=== PATIENT | male | born 1965 | race Caucasian/White ===

== ENCOUNTER 2017-08-04 21:51 | Emergency (ER) | payer OTHER ==
[~2017-08-04] VITALS: Ht 175.3 cm; Wt 74.8 kg
[~2017-08-04 21:51] MED LIST: ALEVE220 MG PO; AMOXICILLIN 50500 M1 PO; AUGMENTIN 875875 MG PO; CIPROFLOXACIN500 M1 PO; CLEOCIN HCL300 MG PO; CLONAZEPAM 1 MG1 M1 PO; COLACE100 MG PO; FLAGYL500 MG PO; HYDROCODON-ACE1 EAC7 PO; HYDROCODON-ACE1 EACH PO; HYDROCODONE-APA1 TA1 PO; IBUPROFEN 800800 MG PO; METOPROLOL SUC100 MG PO; METOPROLOL SUCC25 M1; MIRALAX255 GM PO; NAPROSYN500 MG PO; NOHOMEMEDICATIONS; NORCO 5-325 TA1 EACH PO; PERCOCET 5-3251 EACH PO; ULTRAM 50MG TAB50 MG PO; VICODIN HP 10-1 EAC1 PO; ZOFRAN4 MG PO
[2017-08-04 22:23] LABS: ABSOLUTE BASOPHILS 0.1 thou/uL (0.0-0.2); ABSOLUTE EOSINOPHILS 0.2 thou/uL (0.0-0.7); ABSOLUTE MONOCYTES 0.5 thou/uL (0.0-1.2); ABSOLUTE NEUTROPHILS 4.3 thou/uL (1.6-8.1); HEMATOCRIT 40.8 % (42.0-52.0); HEMOGLOBIN 13.6 gm/dL (14.0-18.0); MCH 30.4 pg (26.0-34.0); MCHC 33.4 g/dL (28.0-37.0); MCV 90.9 fL (80.0-100.0); MONOCYTES 6.7 %; MPV 7.7 fl. (7.2-11.1); NUCLEATED RBCS 0 /100WBC; PLATELET COUNT* 334 thou/uL (150-400); POLYS 52.3 %; RBC 4.49 mil/uL (4.50-6.00); WBC 8.1 thou/uL (4.0-11.0)
[2017-08-04 22:38] LABS: ALBUMIN 3.7 g/dL (3.4-5.0); CALCIUM 8.1 mg/dL (8.5-10.1); CREATININE 0.9 mg/dL (0.6-1.3); POTASSIUM 3.6 mmol/L (3.5-5.1); TOTAL BILIRUBIN 0.2 mg/dL (<0.1-1.0); TOTAL PROTEIN 6.8 g/dL (6.4-8.2)
[2017-08-04 22:45] LABS: URINE BILIRUBIN NEGATIVE (Negative); URINE BLOOD NEGATIVE (Negative); URINE CLARITY CLEAR; URINE COLOR STRAW; URINE GLUCOSE-RANDOM NEGATIVE (Negative); URINE KETONES NEGATIVE (Negative); URINE LEUKOCYTES-REFLEX NEGATIVE (Negative); URINE NITRITE-REFLEX NEGATIVE (Negative); URINE PROTEIN NEGATIVE (Negative); URINE SPECIFIC GRAVITY <= 1.005 (1.005-1.030); URINE UROBILINOGEN 0.2 E.U./dl (0.2-1.0)
[2017-08-04 22:53] LABS: AMP/METHAMP Negative (Negative); BARBITURATES Negative (Negative); BENZODIAZEPINES Negative (Negative); COCAINE Negative (Negative); METHADONE Negative (Negative); OPIATES Negative (Negative); PCP Negative (Negative); THC Negative (Negative)
[2017-08-05] MEDS ORDERED: ULTRAM 50MG TAB50 MG PO (01:27)
[2017-08-05] MEDS ORDERED: TORADOL 10 MG T10 MG PO (01:27)
[2017-08-05 01:37] VITALS: BP 123/80
[2018-05-04] MEDS ORDERED: NEURONTIN 400400 M1 PO (12:40)
[2018-05-04] MEDS ORDERED: CARAFATE 1 GM TA1 G1 PO (12:40)
[2018-05-04] MEDS ORDERED: ZOFRAN ODT4 MG DISSOLVE (12:40)
[2018-05-05] MEDS ORDERED: ATIVAN2 MG PO (01:00)
== END 2017-08-05 01:37 | disposition home or self-care (01) ==
LOC: M.ERS 21:51
PROVIDERS: Personal Emergency Response Attendant
DX: F10.920 Alcohol use, unspecified with intoxication, uncomplicated (principal); R51 Headache; I10 Essential (primary) hypertension; F41.9 Anxiety disorder, unspecified; Z86.73 Personal history of transient ischemic attack (TIA), and cerebral infarction without residual deficits; G89.29 Other chronic pain; Z98.890 Other specified postprocedural states

== ENCOUNTER 2017-08-09 19:09 | Emergency (ER) | payer OTHER ==
[~2017-08-09] VITALS: Ht 175.3 cm; Wt 79.4 kg
[~2017-08-09 19:09] MED LIST changes: +TORADOL 10 MG T10 MG PO
[2017-08-09 19:17] VITALS: BP 155/101
[2018-05-04] MEDS ORDERED: NEURONTIN 400400 M1 PO (12:40)
[2018-05-04] MEDS ORDERED: CARAFATE 1 GM TA1 G1 PO (12:40)
[2018-05-04] MEDS ORDERED: ZOFRAN ODT4 MG DISSOLVE (12:40)
[2018-05-05] MEDS ORDERED: ATIVAN2 MG PO (01:00)
== END 2017-08-09 19:54 | disposition left against medical advice (07) ==
LOC: M.ERS 19:09
DX: R51 Headache (principal); F41.9 Anxiety disorder, unspecified; I10 Essential (primary) hypertension; Z86.73 Personal history of transient ischemic attack (TIA), and cerebral infarction without residual deficits

== ENCOUNTER 2017-08-20 16:37 | Emergency (ER) | payer OTHER ==
[~2017-08-20] VITALS: Ht 175.3 cm; Wt 79.4 kg
[2017-08-20 17:18] LABS: ABSOLUTE BASOPHILS 0.1 thou/uL (0.0-0.2); ABSOLUTE EOSINOPHILS 0.2 thou/uL (0.0-0.7); ABSOLUTE LYMPHOCYTES 4.2 thou/uL (0.8-5.3); ABSOLUTE MONOCYTES 0.6 thou/uL (0.0-1.2); ABSOLUTE NEUTROPHILS 6.2 thou/uL (1.6-8.1); BASOPHILS 1.1 %; EOSINOPHILS 1.6 %; HEMATOCRIT 47.9 % (42.0-52.0); HEMOGLOBIN 16.1 gm/dL (14.0-18.0); LYMPHOCYTES 37.4 %; MCH 30.3 pg (26.0-34.0); MCHC 33.7 g/dL (28.0-37.0); MCV 90.1 fL (80.0-100.0); MONOCYTES 5.3 %; MPV 7.5 fl. (7.2-11.1); NUCLEATED RBCS 0 /100WBC; PLATELET COUNT* 332 thou/uL (150-400); POLYS 54.6 %; RBC 5.31 mil/uL (4.50-6.00); RDW-CV 13.6 % (10.5-14.5); WBC 11.3 thou/uL (4.0-11.0)
[2017-08-20 17:30] LABS: CALCIUM 8.3 mg/dL (8.5-10.1)
[2017-08-20 17:35] LABS: ALBUMIN 3.9 g/dL (3.4-5.0); TOTAL BILIRUBIN 0.9 mg/dL (<0.1-1.0); TOTAL PROTEIN 7.8 g/dL (6.4-8.2)
[2017-08-20 17:48] VITALS: BP 145/89
[2018-05-04] MEDS ORDERED: NEURONTIN 400400 M1 PO (12:40)
[2018-05-04] MEDS ORDERED: ZOFRAN ODT4 MG DISSOLVE (12:40)
[2018-05-04] MEDS ORDERED: CARAFATE 1 GM TA1 G1 PO (12:40)
[2018-05-05] MEDS ORDERED: ATIVAN2 MG PO (01:00)
== END 2017-08-20 17:49 | disposition home or self-care (01) ==
LOC: M.ERS 16:37
PROVIDERS: Physician Assistant
DX: R51 Headache (principal)

== ENCOUNTER 2017-09-03 09:08 | Emergency (ER) | payer OTHER ==
[~2017-09-03] VITALS: Ht 175.3 cm; Wt 79.4 kg
[2017-09-03] MEDS ORDERED: LIDOCAINE VISC100 ML PO (10:48)
[2017-09-03] MEDS ORDERED: AMOXICILLIN 50500 MG PO (10:48)
[2017-09-03 11:05] VITALS: BP 120/86
[2018-05-04] MEDS ORDERED: ZOFRAN ODT4 MG DISSOLVE (12:40)
[2018-05-04] MEDS ORDERED: CARAFATE 1 GM TA1 G1 PO (12:40)
[2018-05-04] MEDS ORDERED: NEURONTIN 400400 M1 PO (12:40)
[2018-05-05] MEDS ORDERED: ATIVAN2 MG PO (01:00)
== END 2017-09-03 11:06 | disposition home or self-care (01) ==
LOC: M.ERS 09:08
DX: K08.89 Other specified disorders of teeth and supporting structures (principal); F41.9 Anxiety disorder, unspecified; I10 Essential (primary) hypertension; Z86.73 Personal history of transient ischemic attack (TIA), and cerebral infarction without residual deficits

== ENCOUNTER 2017-11-14 22:55 | Emergency (ER) | payer OTHER ==
[~2017-11-14] VITALS: Ht 175.3 cm; Wt 77.1 kg
[~2017-11-14 22:55] MED LIST changes: +AMOXICILLIN 50500 MG PO; +LIDOCAINE VISC100 ML PO
[2017-11-15 00:31] VITALS: BP 125/90
[2018-05-04] MEDS ORDERED: CARAFATE 1 GM TA1 G1 PO (12:40)
[2018-05-04] MEDS ORDERED: ZOFRAN ODT4 MG DISSOLVE (12:40)
[2018-05-04] MEDS ORDERED: NEURONTIN 400400 M1 PO (12:40)
[2018-05-05] MEDS ORDERED: ATIVAN2 MG PO (01:00)
== END 2017-11-15 00:32 | disposition home or self-care (01) ==
LOC: M.ERS 22:55
DX: M54.9 Dorsalgia, unspecified (principal); K64.5 Perianal venous thrombosis; G89.29 Other chronic pain; F41.9 Anxiety disorder, unspecified; I10 Essential (primary) hypertension; Z86.73 Personal history of transient ischemic attack (TIA), and cerebral infarction without residual deficits

== ENCOUNTER 2018-01-25 03:00 | Emergency (ER) | payer OTHER ==
[~2018-01-25] VITALS: Ht 175.3 cm; Wt 68.0 kg
[2018-01-25 03:31] LABS: ABSOLUTE BASOPHILS 0.1 thou/uL (0.0-0.2); ABSOLUTE EOSINOPHILS 0.1 thou/uL (0.0-0.7); ABSOLUTE LYMPHOCYTES 1.9 thou/uL (0.8-5.3); ABSOLUTE MONOCYTES 0.7 thou/uL (0.0-1.2); BASOPHILS 0.6 %; HEMATOCRIT 40.1 % (42.0-52.0); HEMOGLOBIN 13.2 gm/dL (14.0-18.0); LYMPHOCYTES 17.3 %; MCH 29.8 pg (26.0-34.0); MCHC 32.8 g/dL (28.0-37.0); MCV 90.6 fL (80.0-100.0); MONOCYTES 6.6 %; MPV 7.5 fl. (7.2-11.1); NUCLEATED RBCS 0 /100WBC; PLATELET COUNT* 398 thou/uL (150-400); POLYS 74.5 %; RBC 4.42 mil/uL (4.50-6.00); RDW-CV 13.7 % (10.5-14.5); WBC 10.7 thou/uL (4.0-11.0)
[2018-01-25 03:33] LABS: CALCIUM 8.2 mg/dL (8.5-10.1); CREATININE 0.9 mg/dL (0.6-1.3); POTASSIUM 3.6 mmol/L (3.5-5.1)
[2018-01-25 03:38] LABS: ALBUMIN 3.2 g/dL (3.4-5.0); TOTAL BILIRUBIN 0.3 mg/dL (<0.1-1.0); TOTAL PROTEIN 6.9 g/dL (6.4-8.2)
[2018-01-25 03:46] LABS: URINE BILIRUBIN NEGATIVE (Negative); URINE BLOOD NEGATIVE (Negative); URINE CLARITY CLEAR; URINE COLOR YELLOW; URINE GLUCOSE-RANDOM NEGATIVE (Negative); URINE KETONES NEGATIVE (Negative); URINE LEUKOCYTES-REFLEX NEGATIVE (Negative); URINE NITRITE-REFLEX NEGATIVE (Negative); URINE PROTEIN NEGATIVE (Negative); URINE SPECIFIC GRAVITY <= 1.005 (1.005-1.030); URINE UROBILINOGEN 0.2 E.U./dl (0.2-1.0)
[2018-01-25 03:49] LABS: AMP/METHAMP Negative (Negative); BARBITURATES Negative (Negative); BENZODIAZEPINES POSITIVE (Negative); COCAINE Negative (Negative); METHADONE Negative (Negative); OPIATES Negative (Negative); PCP Negative (Negative); THC Negative (Negative)
[2018-01-25 05:01] VITALS: BP 106/76
[2018-05-04] MEDS ORDERED: NEURONTIN 400400 M1 PO (12:40)
[2018-05-04] MEDS ORDERED: CARAFATE 1 GM TA1 G1 PO (12:40)
[2018-05-04] MEDS ORDERED: ZOFRAN ODT4 MG DISSOLVE (12:40)
[2018-05-05] MEDS ORDERED: ATIVAN2 MG PO (01:00)
== END 2018-01-25 05:03 | disposition home or self-care (01) ==
LOC: M.ERS 03:00
PROVIDERS: Personal Emergency Response Attendant
DX: S40.011A Contusion of right shoulder, initial encounter (principal); F10.129 Alcohol abuse with intoxication, unspecified; W17.89XA Other fall from one level to another, initial encounter; Y93.89 Activity, other specified; Y92.89 Other specified places as the place of occurrence of the external cause; Y99.8 Other external cause status; F41.9 Anxiety disorder, unspecified; I10 Essential (primary) hypertension; G89.29 Other chronic pain; M54.9 Dorsalgia, unspecified

== ENCOUNTER 2018-02-17 21:45 | Inpatient (IN) | payer OTHER ==
[~2018-02-17] VITALS: Ht 175.3 cm; Wt 69.9 kg
[2018-02-17 21:47] VITALS: BP 143/94
[2018-02-17 23:02] LABS: ABSOLUTE BASOPHILS 0.1 thou/uL (0.0-0.2); ABSOLUTE EOSINOPHILS 0.1 thou/uL (0.0-0.7); ABSOLUTE LYMPHOCYTES 2.5 thou/uL (0.8-5.3); ABSOLUTE MONOCYTES 0.5 thou/uL (0.0-1.2); ABSOLUTE NEUTROPHILS 3.2 thou/uL (1.6-8.1); BASOPHILS 1.3 %; EOSINOPHILS 0.9 %; HEMATOCRIT 41.3 % (42.0-52.0); HEMOGLOBIN 13.9 gm/dL (14.0-18.0); LYMPHOCYTES 39.4 %; MCH 31.1 pg (26.0-34.0); MCHC 33.5 g/dL (28.0-37.0); MCV 92.8 fL (80.0-100.0); MONOCYTES 7.5 %; MPV 7.1 fl. (7.2-11.1); NUCLEATED RBCS 0 /100WBC; PLATELET COUNT* 423 thou/uL (150-400); POLYS 50.9 %; RBC 4.46 mil/uL (4.50-6.00); RDW-CV 15.2 % (10.5-14.5); WBC 6.3 thou/uL (4.0-11.0)
[2018-02-17 23:11] LABS: CALCIUM 8.6 mg/dL (8.5-10.1); POTASSIUM 3.7 mmol/L (3.5-5.1)
[2018-02-17 23:15] LABS: ALBUMIN 3.6 g/dL (3.4-5.0); TOTAL BILIRUBIN 0.3 mg/dL (<0.1-1.0); TOTAL PROTEIN 7.5 g/dL (6.4-8.2)
[2018-02-18] VITALS (17 sets, daily range): BP systolic 129–159; BP diastolic 88–115
[2018-02-18 06:54] LABS: CALCIUM 8.3 mg/dL (8.5-10.1); CREATININE 0.8 mg/dL (0.6-1.3); POTASSIUM 3.6 mmol/L (3.5-5.1)
--- NOTE | 2018-02-18 07:01 | NUR ---
PATIENT ARRIVED ON UNIT AT APPROX 0600. SKIP TENDER COMPLETED DOCUMENTED. NO COMPLAINTS OF PAIN NOTED. ALERT AND ORIENTED TIMESFOUR. CIWA 0.
[2018-02-18] MEDS ORDERED: LOPRESSOR100 M1 PO (09:12)
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
[2018-02-18 11:00] LABS: URINE BILIRUBIN NEGATIVE (Negative); URINE BLOOD NEGATIVE (Negative); URINE CLARITY CLEAR; URINE COLOR YELLOW; URINE GLUCOSE-RANDOM NEGATIVE (Negative); URINE KETONES TRACE (Negative); URINE LEUKOCYTES-REFLEX NEGATIVE (Negative); URINE NITRITE-REFLEX NEGATIVE (Negative); URINE PROTEIN NEGATIVE (Negative); URINE SPECIFIC GRAVITY 1.025 (1.005-1.030); URINE UROBILINOGEN 0.2 E.U./dl (0.2-1.0)
--- NOTE | 2018-02-18 11:01 | NUR ---
URINE SAMPLE COLLECTED AND SENT.
[2018-02-18 11:10] LABS: AMP/METHAMP Negative (Negative); BARBITURATES Negative (Negative); BENZODIAZEPINES POSITIVE (Negative); COCAINE Negative (Negative); METHADONE Negative (Negative); OPIATES Negative (Negative); PCP Negative (Negative); THC POSITIVE (Negative)
--- NOTE | 2018-02-18 14:51 | NUR ---
ICU ROUNDING: CM SPOKE TO THE RN IN-CHARGE OF THE PATIENT AND SHE INFORMS THAT THE PATIENT WAS ADMITTED FOR ETOH. PATIENT ANXIOUS, AND WILL RECEIVE FIRST DOSE ATIVAN TODAY. PATIENT ATE BREAKFAST. PLAN TO HAVE PATIENT SEEN BY TELE PSYCH TODAY. CM WILL REMAIN AVAILABLE TO ASSIST AND FOLLOW NEEDED.
--- NOTE | 2018-02-18 15:59 | NUR ---
PSYCHIATRY CONSULTED PER ORDERS. PT SPOKE TO PSYCH DR. DORANTES PRINTED AND PLACED IN PROGRESS NOTES OF PT'S CHART.
--- NOTE | 2018-02-18 18:44 | NUR ---
HIGHEST CIWA 8 THIS SHIFT. LAST CIWA 5. PT HAD PO ATIVAN 1 TIME THIS SHIFT. AFTER TAKING MEDICATION, PT REPORTED ANXIETY WAS VERY MINIMAL. ATIVAN AND PT'S SCHEDULED KLON[place] NOT ADMININSTERED TOGETHER. PT HAS C/O OF HEADACHE WITH MOVEMENT OF HEAD. PT REPORTS TRAMADOL HAS HELPED PAIN, RATING HEADACHE AT 4/10. PT C/O OF RIGHT SHOULDER PAIN. PT REPORTS TRAMADOL TAKES EDGE OFF OF PAIN. BEFORE MEDICATION PT RATES PAIN 8/10. AFTER ADMINISTRATION OF TRAMADOL PAIN RATED 7/10. PT ANXIOUS ABOUT XRAY RESULTS. VSS. SPOUSE AT BEDSIDE. PT REPORTED FEELING VERY HUNGRY. PT EATING AND TOLERATING MEALS DENYING NAUSEA. FOR DINNER 2 MEALS ORDERED. PT ATE 100% OF 1 TRAY AND 55% OF 2ND TRAY.
[2018-02-19] VITALS (8 sets, daily range): BP systolic 120–158; BP diastolic 83–110
[2018-02-19 02:21] LABS: GLYCOHEMOGLOBIN (HGB A1C) 4.8 % (4.8-5.6)
[2018-02-19 04:07] LABS: HEMATOCRIT 36.8 % (42.0-52.0); HEMOGLOBIN 12.3 gm/dL (14.0-18.0); MCH 31.4 pg (26.0-34.0); MCHC 33.4 g/dL (28.0-37.0); MCV 94.1 fL (80.0-100.0); MPV 7.3 fl. (7.2-11.1); RBC 3.91 mil/uL (4.50-6.00); RDW-CV 14.7 % (10.5-14.5); WBC 7.3 thou/uL (4.0-11.0)
[2018-02-19 04:27] LABS: ALBUMIN 2.7 g/dL (3.4-5.0); CALCIUM 7.7 mg/dL (8.5-10.1); CREATININE 0.9 mg/dL (0.6-1.3); MAGNESIUM 1.6 mg/dL (1.8-2.4); POTASSIUM 3.6 mmol/L (3.5-5.1); TOTAL PROTEIN 5.6 g/dL (6.4-8.2)
--- NOTE | 2018-02-19 08:04 | NUR ---
PROGRESSING TOWARD GOALS, VSS. CIWA SCORES 1-10, PRN ATIVAN GIVEN ORDERED WHEN INDICATED WITH RELIEF OF SYMPTOMS. CALL LIGHT WITHIN REACH.
--- NOTE | 2018-02-19 11:06 | NUR ---
ASSUMED PT CARE 0730. VSS. AFEBRILE. CIWA CHARTED. PT ASKED FOR NICOTINE PATCH. DR NOTIFIED AND ORDERS RECEIVED. MAG 1.6. DR NOTIFIED AND PUT ON ELECTROLYE PROTOCOL. MAGNESIUM GIVEN. PT SAT IN CHAIR FOR BREAKFAST. PT ENCOURAGED TO SIT IN CHAIR TODAY. PT STATUS NOW M/S TELE. WILL CONTINUE PLAN OF CARE.
--- NOTE | 2018-02-19 12:00 | NUR ---
SPOKE WITH PT. HE SAID HE CAME TO THE HOSPITAL BECAUSE HE KNEW HE NEEDED TO 'DETOX FROM MY DRINKING.' PT ADMITS TO YEARS OF ALCOHOL USE, 'I CAN QUIT DRINKING AND STAY SOBER FOR LONG PERIODS OF TIME BUT THEN I START DRINKING AGAIN.' PT SAID HE HAS TRIED AA AND SEVERAL OTHER ALCOHOL TX OPTIONS 'BUT THEY DON'T WORK FOR ME.' HE SAID HE HAS TALKED WITH THE PASTORS OF HIS TEM[place] AND HIS [place] FAMILY WILL BE HIS SUPPORT TO STAY SOBER. PROVIDED PT WITH ALCOHOL TREATMENT OPTIONS, ALONG WITH INFORMATION FOR UNINSURED. HE SAID HE HAS A PCP AND GOES TO SEE HIM YEARLY BUT DIDN'T TELL ME THE PCP'S NAME. DISCUSSED ROLE OF CASE MGT, WILL CONTINUE TO FOLLOW. PT ASKING IF IT IS TIME FOR HIS LIBRIUM HE WAS STARTING TO FEEL SHAKY AGAIN, PT'S NURSE NOTIFIED.
--- NOTE | 2018-02-19 16:32 | NUR ---
MAGNESIUM REPLACED. LEFT AC INFILTRATED. NEW RIGHT AC IV PLACED. PT TOLERATING REGULAR DIET. PT M/S TELE STATUS. PT CONTINUES TO C/O OF RIGHT SHOULDER PAIN. PT REQUESTS TYLENOL AND TRAMADOL TOGETHER FOR PAIN AND REPORTS THIS HELPS PAIN.
--- NOTE | 2018-02-19 17:48 | NUR ---
ASSUMED CARE OF PATIENT AT 1700 AFTER TRANSFER TO ROOM 229 FROM ICU. PATIENT AWAKE, ALERT, AND ORIENTED APPROPRIATELY. THIS NURSE AGREES WITH ASSESSMENT DOCUMENTED BY PREVIOUS NURSE THIS SHIFT. CIWA ASSESSMENT COMPLETED AND CHARTED. NO COMPLAINTS OF PAIN. HAS BEEN EDUCATED TO USE CALL LIGHT IF NEEDS ARISE. BED ALARM ON. CALL LIGHT WITHIN REACH. DENIES NEEDS AT THIS TIME. NURSING WILL CONTINUE TO MONITOR.
[2018-02-20] VITALS (7 sets, daily range): BP systolic 118–152; BP diastolic 82–104
--- NOTE | 2018-02-20 04:47 | NUR ---
ASSUMED CARE OF PT AFTER REPORT AT 1930. PT A&O X4. VSS. PHYSICAL ASSESSMENT COMPLETED AND CHARTED. PT ON RA WITH 99% O2 SAT. PT TRACING SR ON TELE. PT UP ADLIB. PT C/O OF RIGHT SHOULDER PAIN-TREATED WITH PAIN MEDS PER OCT WITH PARTIAL RELIEF. PT STATED HE DID NOT SLEEP SINCE YESTERDAY AND CANT SLEEP TONIGHT. PT REQUESTING FOR SLEEPING PILL-DR WHITE INFORMED WITH NEW ORDER AND WAS GIVEN PER OCT. PT RESTED AND SLEPT WELL ON BED. HOURLY ROUNDING OBSERVED. HS REST & SAFETY GOAL ACHIEVED. CALL LIGHT WITHIN REACH.
[2018-02-20 04:56] LABS: CALCIUM 8.2 mg/dL (8.5-10.1); CREATININE 0.8 mg/dL (0.6-1.3); MAGNESIUM 1.6 mg/dL (1.8-2.4); PHOSPHORUS* 3.8 mg/dL (2.5-4.9); POTASSIUM 4.1 mmol/L (3.5-5.1)
--- NOTE | 2018-02-20 09:31 | NUR ---
ASSUMED CARE OF PATIENT AFTER REPORT THIS MORNING. PATIENT AWAKE, ALERT, AND ORIENTED APPROPRIATELY. CIWA SCORE 1, SEE DOCUMENTATION. PHYSICAL ASSESSMENT COMPLETED AND CHARTED. COMPLAINED OF PAIN. GIVEN PRN AND SCHEDULED MEDICATIONS, SEE EMAR FOR DOCUMENTATION. VITAL SIGNS STABLE. OXYGEN SATURATION WITHIN NORMAL LIMITS ON ROOM AIR. PATIENT IS UP WITH STANDBY ASSISTANCE FROM STAFF. USES CALL LIGHT APPROPRIATELY. DENIES NEEDS AT THIS TIME. CALL LIGHT WITHIN REACH. NURSING WILL CONTINUE TO MONITOR.
--- NOTE | 2018-02-20 17:46 | NUR ---
PATIENT REMAINS ALERT AND ORIENTED APPROPRIATELY. CIWA SCORE DOCUMENTED AT 8 THIS AFTERNOON. GIVEN DOSE OF PO ATIVAN, NO RELIEF, GIVEN IV ATIVAN, SEE EMAR FOR DOCUMENTATION. PATIENT STATED HE FELT RELIEF, NOTICEABLY LESS ANXIOUS AND NO TREMORS OR AGITATION AFTER IV ADMINISTRATION. GIVEN SCHEDULED MEDICATIONS, SEE EMAR FOR DOCUMENTATION. CHANGED ACTIVITY STATUS TO AD LADARIUS THIS AFTERNOON AFTER DISCUSSION WITH DR. WHITE. PATIENT HAS BEEN AMBULATING IN THE [place] THIS SHIFT WITH . GIVEN PRN MEDICATIONS FOR PAIN TO RIGHT SHOULDER. PATIENT HAVING HYPERTENSION. PHYSICIAN PAGED AND NEW ORDERS RECEIVED. GIVEN SCHEDULED MEDICATIONS, WILL REASSESS BLOOD PRESSURE, SEE EMAR FOR DOCUMENTATION. DENIES NEEDS AT THIS TIME. CALL LIGHT WITHIN REACH. NURSING WILL CONTINUE TO MONITOR.
[2018-02-20] MEDS ORDERED: PRENATAL PO (21:16)
[2018-02-20] MEDS ORDERED: TRAMADOL 50 MG50 MG PO (21:16)
[2018-02-20] MEDS ORDERED: PRINIVIL5 MG PO (21:16)
[2018-02-21 04:00] VITALS: BP 117/85
--- NOTE | 2018-02-21 06:45 | NUR ---
Pt reports that he slept well overnight, especially during the latter part of the shift. CIWA 10 at bedtime. Received prn dose of Ativan after scheduled dose to relieve tremors and anxiety. Score down to 7, then appeared to be asleep soon after. States he is hopeful of being discharged today. Medicated twice for c/o R shoulder pain. VSS. Will continue to monitor.
--- NOTE | 2018-02-21 07:15 | NUR ---
CHANGE OF SHIFT BEDSIDE REPORT GIVEN PATIENT SEEN AT BEDSIDE IN BED AND RESTING ASSUMED PATIENT CARE
[2018-02-21 08:00] VITALS: BP 129/96
[2018-02-21 12:14] VITALS: BP 117/85
[2018-02-21] MEDS ORDERED: ATIVAN0.5 MG PO (12:21)
[2018-02-21] MEDS ORDERED: ATIVAN1 MG PO (12:22)
--- NOTE | 2018-02-21 12:40 | NUR ---
DISCHARGE TO HOME ALL DC INSTRUCTION GIVEN AND ACKNOWLEDGED AND SIGNED COPIES GIVEN IV REMOVED PERSONAL BELONGINGS RETURNED ESCORTED OUT AMBULATORY TO WAITING CAR
[2018-05-04] MEDS ORDERED: ZOFRAN ODT4 MG DISSOLVE (12:40)
[2018-05-04] MEDS ORDERED: NEURONTIN 400400 M1 PO (12:40)
[2018-05-04] MEDS ORDERED: CARAFATE 1 GM TA1 G1 PO (12:40)
[2018-05-05] MEDS ORDERED: ATIVAN2 MG PO (01:00)
== END 2018-02-21 12:40 | disposition home or self-care (01) | DRG 556 ==
LOC: M.ERS 21:45 → M.ICU 02-18 03:48 → M.TBA-ER 02-18 03:48 → M.ICU 02-18 05:21 → M.2W 02-19 16:58
PROVIDERS: Personal Emergency Response Attendant; ADMIT Internal Medicine
DX: M25.511 Pain in right shoulder (principal); F41.9 Anxiety disorder, unspecified; F10.129 Alcohol abuse with intoxication, unspecified; F17.210 Nicotine dependence, cigarettes, uncomplicated; Y90.9 Presence of alcohol in blood, level not specified; G89.29 Other chronic pain; M54.9 Dorsalgia, unspecified; I10 Essential (primary) hypertension; Z86.73 Personal history of transient ischemic attack (TIA), and cerebral infarction without residual deficits; Z71.41 Alcohol abuse counseling and surveillance of alcoholic

== ENCOUNTER 2018-02-25 00:44 | Emergency (ER) | payer OTHER ==
[~2018-02-25] VITALS: Ht 170.2 cm; Wt 65.8 kg
[~2018-02-25 00:44] MED LIST changes: +ATIVAN0.5 MG PO; +ATIVAN1 MG PO; +LOPRESSOR100 M1 PO; +PRENATAL PO; +PRINIVIL5 MG PO; +TRAMADOL 50 MG50 MG PO
[2018-02-25 01:10] LABS: ABSOLUTE EOSINOPHILS 0.1 thou/uL (0.0-0.7); ABSOLUTE LYMPHOCYTES 2.3 thou/uL (0.8-5.3); ABSOLUTE MONOCYTES 0.6 thou/uL (0.0-1.2); BASOPHILS 0.6 %; EOSINOPHILS 1.4 %; HEMATOCRIT 43.3 % (42.0-52.0); HEMOGLOBIN 14.2 gm/dL (14.0-18.0); LYMPHOCYTES 32.3 %; MCHC 32.9 g/dL (28.0-37.0); MONOCYTES 8.7 %; MPV 7.8 fl. (7.2-11.1); NUCLEATED RBCS 0 /100WBC; PLATELET COUNT* 431 thou/uL (150-400); RDW-CV 15.2 % (10.5-14.5)
[2018-02-25 01:19] LABS: ANION GAP 9 mmol/L (7-16); BUN 5 mg/dL (7-18); CALCIUM 9.1 mg/dL (8.5-10.1); CHLORIDE 107 mmol/L (98-107); CO2 27 mmol/L (21-32); CREATININE 0.9 mg/dL (0.6-1.3); GLUCOSE 102 mg/dL (70-99); POTASSIUM 3.7 mmol/L (3.5-5.1); SODIUM 143 mmol/L (136-145)
[2018-02-25 01:30] LABS: ALKALINE PHOSPHATASE 109 U/L (46-116); NT-PRO BRAIN NAT PEPTIDE 32 pg/mL (<300); SGOT 24 U/L (15-37); SGPT 29 U/L (30-65); TOTAL BILIRUBIN 0.3 mg/dL (<0.1-1.0); TOTAL PROTEIN 8.3 g/dL (6.4-8.2); TROPONIN-I LEVEL <0.06 ng/mL (<0.06)
[2018-02-25] MEDS ORDERED: NORCO 5-325 TA1 EACH PO (03:21)
[2018-02-25 03:28] VITALS: BP 117/90
--- NOTE | 2018-02-25 19:34 | EKG ---
[place] [address] ELECTROCARDIOGRAM REPORT Name: ELBA FOUNTAINIC Room: [facility]#: [id number] Admission: 02/25/18 Attend Phys: Discharge: 02/25/18 Date of : 67 Report #: [id number] THIS REPORT FOR: //name// [place] ED Test Date: 2018-02-25 Test Time: 01:02:15 Pat Name: ELBA FOUNTAIN Department: Room: Gender: M Forms Designer: SYL : 1965 Requested By: Vivek Paz Order Number: [id number] MD: Jonny Torres Measurements Intervals [place] Rate: 89 P: 51 ID: 180 QRS: 54 QRSD: 78 T: 42 QT: 346 QTc: 421 Interpretive Statements Sinus rhythm Compared to ECG 07/15/2017 21:20:50 No significant changes noted. Electronically Signed On 02-25-2018 19:33:58 CDT by Jonny Torres [email or web address] <ELECTRONICALLY SIGNED> By: Jonny Torres MD, [facility] 02/25/18 1933 0102 0102 Jonny Torres MD, FACC /EPI
[2018-05-04] MEDS ORDERED: ZOFRAN ODT4 MG DISSOLVE (12:40)
[2018-05-04] MEDS ORDERED: CARAFATE 1 GM TA1 G1 PO (12:40)
[2018-05-04] MEDS ORDERED: NEURONTIN 400400 M1 PO (12:40)
[2018-05-05] MEDS ORDERED: ATIVAN2 MG PO (01:00)
== END 2018-02-25 03:28 | disposition home or self-care (01) ==
LOC: M.ERS 00:44
PROVIDERS: Emergency Medicine Emergency Medical Services
DX: S42.001A Fracture of unspecified part of right clavicle, initial encounter for closed fracture (principal); F10.129 Alcohol abuse with intoxication, unspecified; Y90.7 Blood alcohol level of 200-239 mg/100 ml; G89.29 Other chronic pain; M54.9 Dorsalgia, unspecified; I10 Essential (primary) hypertension; F41.0 Panic disorder [episodic paroxysmal anxiety]; X58.XXXA Exposure to other specified factors, initial encounter; Y93.89 Activity, other specified; Y92.89 Other specified places as the place of occurrence of the external cause; Y99.8 Other external cause status

== ENCOUNTER 2018-03-04 04:26 | Emergency (ER) | payer OTHER ==
[~2018-03-04] VITALS: Ht 175.3 cm; Wt 72.6 kg
[2018-03-04] MEDS ORDERED: CLONAZEPAM (04:34)
[2018-03-04 05:00] VITALS: BP 125/85
[2018-05-04] MEDS ORDERED: ZOFRAN ODT4 MG DISSOLVE (12:40)
[2018-05-04] MEDS ORDERED: NEURONTIN 400400 M1 PO (12:40)
[2018-05-04] MEDS ORDERED: CARAFATE 1 GM TA1 G1 PO (12:40)
[2018-05-05] MEDS ORDERED: ATIVAN2 MG PO (01:00)
== END 2018-03-04 05:00 | disposition home or self-care (01) ==
LOC: M.ERS 04:26
DX: S01.112A Laceration without foreign body of left eyelid and periocular area, initial encounter (principal); M54.9 Dorsalgia, unspecified; G89.29 Other chronic pain; W01.0XXA Fall on same level from slipping, tripping and stumbling without subsequent striking against object, initial encounter; Y93.89 Activity, other specified; Y92.89 Other specified places as the place of occurrence of the external cause; Y99.8 Other external cause status

== ENCOUNTER → 2018-05-04 | Emergency (ER) | payer OTHER ==
[~2018-05-04] VITALS: Ht 175.3 cm; Wt 68.5 kg
[~2018-05-04] MED LIST changes: +ATIVAN2 MG PO; +CARAFATE 1 GM TA1 G1 PO; +CLONAZEPAM; +NEURONTIN 400400 M1 PO; +ZOFRAN ODT4 MG DISSOLVE
[2018-05-04 11:15] LABS: ABSOLUTE EOSINOPHILS 0.1 thou/uL (0.0-0.7); ABSOLUTE LYMPHOCYTES 1.5 thou/uL (0.8-5.3); ABSOLUTE MONOCYTES 0.4 thou/uL (0.0-1.2); ABSOLUTE NEUTROPHILS 5.3 thou/uL (1.6-8.1); BASOPHILS 0.5 %; EOSINOPHILS 1.5 %; HEMATOCRIT 37.5 % (42.0-52.0); HEMOGLOBIN 12.5 gm/dL (14.0-18.0); LYMPHOCYTES 20.4 %; MCH 31.2 pg (26.0-34.0); MCHC 33.4 g/dL (28.0-37.0); MCV 93.4 fL (80.0-100.0); MONOCYTES 5.1 %; NUCLEATED RBCS 0 /100WBC; PLATELET COUNT* 286 thou/uL (150-400); POLYS 72.5 %; RBC 4.01 mil/uL (4.50-6.00); RDW-CV 14.6 % (10.5-14.5); WBC 7.3 thou/uL (4.0-11.0)
[2018-05-04 11:23] LABS: ANION GAP 8 mmol/L (7-16); BUN 11 mg/dL (7-18); CHLORIDE 105 mmol/L (98-107); CO2 26 mmol/L (21-32); CREATININE 0.8 mg/dL (0.6-1.3); GLUCOSE 85 mg/dL (70-99); SODIUM 139 mmol/L (136-145)
[2018-05-04 11:30] LABS: ALBUMIN 3.3 g/dL (3.4-5.0); ALKALINE PHOSPHATASE 70 U/L (46-116); LIPASE 141 U/L (73-393); SGOT 49 U/L (15-37); SGPT 42 U/L (30-65); TOTAL BILIRUBIN 0.3 mg/dL (<0.1-1.0); TOTAL PROTEIN 7.2 g/dL (6.4-8.2); TROPONIN-I LEVEL <0.06 ng/mL (<0.06)
[2018-05-04 12:37] VITALS: BP 133/90
== END ==
LOC: M.ERS 10:39
PROVIDERS: Emergency Medicine Emergency Medical Services
DX: K29.70 Gastritis, unspecified, without bleeding (principal); F10.129 Alcohol abuse with intoxication, unspecified; M54.9 Dorsalgia, unspecified; G89.29 Other chronic pain; Z86.73 Personal history of transient ischemic attack (TIA), and cerebral infarction without residual deficits

== ENCOUNTER 2018-07-16 18:41 | Emergency (ER) | payer OTHER ==
[~2018-07-16] VITALS: Ht 175.3 cm; Wt 83.9 kg
[2018-07-16 19:27] LABS: PROTIME 10.2 Seconds (9.20-11.50)
[2018-07-16 19:49] LABS: ABSOLUTE BASOPHILS 0.1 thou/uL (0.0-0.2); ABSOLUTE EOSINOPHILS 0.2 thou/uL (0.0-0.7); ABSOLUTE LYMPHOCYTES 2.6 thou/uL (0.8-5.3); ABSOLUTE MONOCYTES 0.4 thou/uL (0.0-1.2); ABSOLUTE NEUTROPHILS 3.6 thou/uL (1.6-8.1); EOSINOPHILS 3.5 %; HEMATOCRIT 40.7 % (42.0-52.0); HEMOGLOBIN 13.6 gm/dL (14.0-18.0); LYMPHOCYTES 37.1 %; MCH 31.2 pg (26.0-34.0); MCHC 33.4 g/dL (28.0-37.0); MCV 93.2 fL (80.0-100.0); MONOCYTES 6.2 %; NUCLEATED RBCS 0 /100WBC; PLATELET COUNT* 641 thou/uL (150-400); POLYS 51.2 %; RBC 4.37 mil/uL (4.50-6.00); RDW-CV 13.2 % (10.5-14.5)
[2018-07-16 20:01] LABS: ALBUMIN 3.6 g/dL (3.4-5.0); ALKALINE PHOSPHATASE 49 U/L (46-116); ANION GAP 10 mmol/L (7-16); BUN 12 mg/dL (7-18); CALCIUM 8.4 mg/dL (8.5-10.1); CHLORIDE 105 mmol/L (98-107); CO2 28 mmol/L (21-32); CREATININE 0.8 mg/dL (0.6-1.3); GLUCOSE 115 mg/dL (70-99); LIPASE 182 U/L (73-393); POTASSIUM 3.8 mmol/L (3.5-5.1); SGOT 42 U/L (15-37); SGPT 51 U/L (30-65); SODIUM 143 mmol/L (136-145); TOTAL BILIRUBIN 0.3 mg/dL (<0.1-1.0); TOTAL PROTEIN 7.1 g/dL (6.4-8.2); TROPONIN-I LEVEL <0.06 ng/mL (<0.06)
[2018-07-16 20:21] LABS: NT-PRO BRAIN NAT PEPTIDE 93 pg/mL (<300)
[2018-07-16 20:55] VITALS: BP 113/83
--- NOTE | 2018-07-17 10:19 | EKG ---
[place] [address] ELECTROCARDIOGRAM REPORT Name: RAMONIrvingELBA Room: [facility] [place]#: [id number] Admission: 07/16/18 Attend Phys: Discharge: 07/16/18 Date of : 67 Report #: [id number] THIS REPORT FOR: //name// [facility] ED Test Date: 2018-07-16 Test Time: 19:08:09 Pat Name: ELBA FOUNTAIN Department: Room: Gender: M Case Fitter: RC : 1965 Requested By: Opal Bates Order Number: [id number] MD: Virgilio Cole Measurements Intervals [place] Rate: 81 P: 37 [place]: 163 QRS: 49 QRSD: 83 T: 26 QT: 368 QTc: 428 Interpretive Statements Sinus rhythm Compared to ECG 05/04/2018 11:56:34 No significant changes Electronically Signed On 07-17-2018 10:19:34 SQL ETL DEVELOPER by Virgilio Cole [email or web address] <ELECTRONICALLY SIGNED> By: Virgilio Cole MD, [facility] 07/17/18 1019 [id number] Virgilio Cole MD, FACC /EPI
== END 2018-07-16 20:55 ==
LOC: M.ERS 18:41
PROVIDERS: Emergency Medicine
DX: F10.129 Alcohol abuse with intoxication, unspecified (principal); Y90.6 Blood alcohol level of 120-199 mg/100 ml; R10.13 Epigastric pain; G89.29 Other chronic pain; M54.9 Dorsalgia, unspecified; Z86.73 Personal history of transient ischemic attack (TIA), and cerebral infarction without residual deficits

== ENCOUNTER 2018-07-19 02:11 | Emergency (ER) | payer OTHER ==
[~2018-07-19] VITALS: Ht 175.3 cm; Wt 77.1 kg
[2018-07-19] MEDS ORDERED: KLONOPIN1 MG PO (02:23)
[2018-07-19 03:17] LABS: ABSOLUTE BASOPHILS 0.1 thou/uL (0.0-0.2); ABSOLUTE EOSINOPHILS 0.2 thou/uL (0.0-0.7); ABSOLUTE LYMPHOCYTES 2.6 thou/uL (0.8-5.3); ABSOLUTE MONOCYTES 0.5 thou/uL (0.0-1.2); ABSOLUTE NEUTROPHILS 4.6 thou/uL (1.6-8.1); BASOPHILS 1.5 %; EOSINOPHILS 2.9 %; HEMATOCRIT 41.2 % (42.0-52.0); HEMOGLOBIN 13.6 gm/dL (14.0-18.0); LYMPHOCYTES 32.7 %; MCV 93.9 fL (80.0-100.0); MONOCYTES 6.4 %; MPV 7.4 fl. (7.2-11.1); NUCLEATED RBCS 0 /100WBC; POLYS 56.5 %; RBC 4.39 mil/uL (4.50-6.00); RDW-CV 13.4 % (10.5-14.5); WBC 8.1 thou/uL (4.0-11.0)
[2018-07-19 03:21] LABS: CALCIUM 8.5 mg/dL (8.5-10.1); CREATININE 0.8 mg/dL (0.6-1.3)
[2018-07-19 03:25] LABS: ALBUMIN 3.5 g/dL (3.4-5.0); TOTAL BILIRUBIN 0.3 mg/dL (<0.1-1.0); TOTAL PROTEIN 6.9 g/dL (6.4-8.2)
[2018-07-19 03:28] LABS: PLATELET COUNT* 551 thou/uL (150-400)
[2018-07-19 04:18] VITALS: BP 108/78
== END 2018-07-19 04:18 | disposition home or self-care (01) ==
LOC: M.ERS 02:11
PROVIDERS: Personal Emergency Response Attendant
DX: T42.4X1A Poisoning by benzodiazepines, accidental (unintentional), initial encounter (principal); G89.29 Other chronic pain; M54.9 Dorsalgia, unspecified; Z86.73 Personal history of transient ischemic attack (TIA), and cerebral infarction without residual deficits; Y92.89 Other specified places as the place of occurrence of the external cause

== ENCOUNTER 2018-07-19 14:14 | Emergency (ER) | payer OTHER ==
[~2018-07-19] VITALS: Ht 175.3 cm; Wt 68.0 kg
[~2018-07-19 14:14] MED LIST changes: +KLONOPIN1 MG PO
[2018-07-19 15:06] LABS: URINE BILIRUBIN NEGATIVE (Negative); URINE BLOOD NEGATIVE (Negative); URINE CLARITY CLEAR; URINE COLOR YELLOW; URINE GLUCOSE-RANDOM NEGATIVE (Negative); URINE KETONES NEGATIVE (Negative); URINE LEUKOCYTES-REFLEX NEGATIVE (Negative); URINE NITRITE-REFLEX NEGATIVE (Negative); URINE PROTEIN NEGATIVE (Negative); URINE SPECIFIC GRAVITY 1.015 (1.005-1.030); URINE UROBILINOGEN 0.2 E.U./dl (0.2-1.0)
[2018-07-19 15:15] LABS: ABSOLUTE BASOPHILS 0.1 thou/uL (0.0-0.2); ABSOLUTE EOSINOPHILS 0.3 thou/uL (0.0-0.7); ABSOLUTE LYMPHOCYTES 2.2 thou/uL (0.8-5.3); ABSOLUTE MONOCYTES 0.7 thou/uL (0.0-1.2); ABSOLUTE NEUTROPHILS 7.3 thou/uL (1.6-8.1); BASOPHILS 1.2 %; EOSINOPHILS 2.9 %; HEMATOCRIT 39.6 % (42.0-52.0); HEMOGLOBIN 13.2 gm/dL (14.0-18.0); LYMPHOCYTES 20.7 %; MCH 31.3 pg (26.0-34.0); MCHC 33.3 g/dL (28.0-37.0); MCV 93.9 fL (80.0-100.0); MONOCYTES 6.9 %; NUCLEATED RBCS 0 /100WBC; PLATELET COUNT* 526 thou/uL (150-400); POLYS 68.3 %; RBC 4.22 mil/uL (4.50-6.00); RDW-CV 13.4 % (10.5-14.5); WBC 10.6 thou/uL (4.0-11.0)
[2018-07-19 15:23] LABS: ANION GAP 9 mmol/L (7-16); BUN 16 mg/dL (7-18); CALCIUM 8.6 mg/dL (8.5-10.1); CHLORIDE 108 mmol/L (98-107); CO2 29 mmol/L (21-32); GLUCOSE 82 mg/dL (70-99); SODIUM 146 mmol/L (136-145)
[2018-07-19 15:24] LABS: APTT 24.2 Seconds (25.0-31.3); PROTIME 10.3 Seconds (9.20-11.50)
[2018-07-19 15:32] LABS: ALCOHOL 223 mg/dL (<10); SALICYLATE < 2.8 mg/dL (2.8-20.0)
[2018-07-19 15:33] LABS: ACETAMINOPHEN < 2 ug/mL (10-30)
[2018-07-19 15:35] LABS: ALBUMIN 3.5 g/dL (3.4-5.0); ALKALINE PHOSPHATASE 46 U/L (46-116); NT-PRO BRAIN NAT PEPTIDE 56 pg/mL (<300); SGOT 25 U/L (15-37); SGPT 50 U/L (30-65); TOTAL BILIRUBIN 0.3 mg/dL (<0.1-1.0); TOTAL PROTEIN 6.7 g/dL (6.4-8.2); TROPONIN-I LEVEL <0.06 ng/mL (<0.06)
--- NOTE | 2018-07-19 16:38 | EKG ---
[place] [address] ELECTROCARDIOGRAM REPORT Name: ELBA FOUNTAINIC Room: [facility]#: [id number] Admission: 07/19/18 Attend Phys: Discharge: Date of : 67 Report #: [id number] THIS REPORT FOR: //name// [facility] ED Test Date: 2018-07-19 Test Time: 14:36:27 Pat Name: ELBA FOUNTAIN Department: Room: Gender: M Poultry Farmworker: Jerson MONDRAGON : 1965 Requested By: Von Springer Order Number: [id number] MD: Jonny Torres Measurements Intervals [place] Rate: 83 P: 25 [place]: 179 QRS: 42 QRSD: 77 T: 52 QT: 351 QTc: 413 Interpretive Statements Sinus rhythm Compared to ECG 07/16/2018 19:08:09 No significant changes Electronically Signed On 07-19-2018 16:37:50 OFFICE COORDINATOR RECEPTIONIST by Jonny Torres [email or web address] <ELECTRONICALLY SIGNED> By: Jonny Torres MD, [facility] 07/19/18 1637 1436 1436 Jonny Torres MD, FACC /EPI
[2018-07-19 16:50] LABS: AMP/METHAMP Negative (Negative); BARBITURATES Negative (Negative); BENZODIAZEPINES POSITIVE (Negative); COCAINE Negative (Negative); METHADONE Negative (Negative); OPIATES Negative (Negative); PCP Negative (Negative); THC Negative (Negative)
[2018-07-19 17:48] VITALS: BP 114/79
== END 2018-07-19 17:48 | disposition home or self-care (01) ==
LOC: M.ERS 14:14
PROVIDERS: Family Medicine
DX: F10.129 Alcohol abuse with intoxication, unspecified (principal)

== ENCOUNTER 2018-07-21 17:13 | Emergency (ER) | payer OTHER ==
[~2018-07-21] VITALS: Ht 175.3 cm; Wt 68.1 kg
[2018-07-21 17:29] LABS: URINE BILIRUBIN NEGATIVE (Negative); URINE BLOOD NEGATIVE (Negative); URINE CLARITY CLEAR; URINE COLOR STRAW; URINE GLUCOSE-RANDOM NEGATIVE (Negative); URINE KETONES NEGATIVE (Negative); URINE LEUKOCYTES-REFLEX NEGATIVE (Negative); URINE NITRITE-REFLEX NEGATIVE (Negative); URINE PROTEIN NEGATIVE (Negative); URINE SPECIFIC GRAVITY <= 1.005 (1.005-1.030); URINE UROBILINOGEN 0.2 E.U./dl (0.2-1.0)
[2018-07-21 17:37] LABS: AMP/METHAMP Negative (Negative); BARBITURATES Negative (Negative); BENZODIAZEPINES Negative (Negative); COCAINE Negative (Negative); METHADONE Negative (Negative); OPIATES Negative (Negative); PCP Negative (Negative); THC Negative (Negative)
[2018-07-21 18:11] LABS: ABSOLUTE BASOPHILS 0.1 thou/uL (0.0-0.2); ABSOLUTE EOSINOPHILS 0.2 thou/uL (0.0-0.7); ABSOLUTE LYMPHOCYTES 2.6 thou/uL (0.8-5.3); ABSOLUTE MONOCYTES 0.5 thou/uL (0.0-1.2); ABSOLUTE NEUTROPHILS 3.7 thou/uL (1.6-8.1); BASOPHILS 1.4 %; HEMATOCRIT 37.6 % (42.0-52.0); HEMOGLOBIN 12.7 gm/dL (14.0-18.0); LYMPHOCYTES 36.6 %; MCH 31.4 pg (26.0-34.0); MCHC 33.8 g/dL (28.0-37.0); MCV 92.8 fL (80.0-100.0); MONOCYTES 7.3 %; MPV 6.9 fl. (7.2-11.1); NUCLEATED RBCS 0 /100WBC; POLYS 51.7 %; RBC 4.05 mil/uL (4.50-6.00); RDW-CV 13.3 % (10.5-14.5); WBC 7.2 thou/uL (4.0-11.0)
[2018-07-21 18:12] LABS: PLATELET COUNT* 405 thou/uL (150-400)
[2018-07-21 18:23] LABS: ALBUMIN 3.1 g/dL (3.4-5.0); CALCIUM 7.7 mg/dL (8.5-10.1); CREATININE 0.8 mg/dL (0.6-1.3); POTASSIUM 3.7 mmol/L (3.5-5.1); TOTAL BILIRUBIN 0.4 mg/dL (<0.1-1.0); TOTAL PROTEIN 6.3 g/dL (6.4-8.2)
[2018-07-21 18:31] LABS: ALCOHOL 246 mg/dL (<10)
[2018-07-21 18:33] LABS: ACETAMINOPHEN < 2 ug/mL (10-30)
[2018-07-21 19:50] VITALS: BP 121/87
== END 2018-07-21 19:50 | disposition home or self-care (01) ==
LOC: M.ERS 17:13
PROVIDERS: Family Medicine
DX: F10.129 Alcohol abuse with intoxication, unspecified (principal); M54.9 Dorsalgia, unspecified; G89.29 Other chronic pain

== ENCOUNTER 2018-07-22 02:29 | Emergency (ER) | payer OTHER ==
[~2018-07-22] VITALS: Ht 175.3 cm; Wt 77.1 kg
[2018-07-22 02:30] VITALS: BP 128/94
== END 2018-07-22 03:16 | disposition left against medical advice (07) ==
LOC: M.ERS 02:29
DX: S20.211A Contusion of right front wall of thorax, initial encounter (principal); F10.129 Alcohol abuse with intoxication, unspecified; W19.XXXA Unspecified fall, initial encounter; Y93.89 Activity, other specified; Y92.89 Other specified places as the place of occurrence of the external cause; Y99.8 Other external cause status

== ENCOUNTER 2020-07-28 08:39 | Observation (INO) | payer OTHER ==
[~2020-07-28] VITALS: Ht 175.3 cm; Wt 69.4 kg
[2020-07-28 08:46] VITALS: BP 135/89
[2020-07-28 08:59] LABS: ABSOLUTE EOSINOPHILS 0.1 thou/uL (0.0-0.7); ABSOLUTE LYMPHOCYTES 2.8 thou/uL (0.8-5.3); ABSOLUTE MONOCYTES 0.5 thou/uL (0.0-1.2); BASOPHILS 0.2 %; EOSINOPHILS 0.9 %; HEMOGLOBIN 13.8 gm/dL (14.0-18.0); LYMPHOCYTES 33.5 %; MCHC 33.7 g/dL (28.0-37.0); MONOCYTES 6.5 %; MPV 6.9 fl. (7.2-11.1); NUCLEATED RBCS 0 /100WBC; PLATELET COUNT* 472 thou/uL (150-400); POLYS 58.9 %; RBC 4.77 mil/uL (4.50-6.00); RDW-CV 14.4 % (10.5-14.5); WBC 8.5 thou/uL (4.0-11.0)
[2020-07-28 09:14] LABS: CALCIUM 8.3 mg/dL (8.5-10.1); CREATININE 0.9 mg/dL (0.6-1.3); POTASSIUM 3.5 mmol/L (3.5-5.1)
[2020-07-28 09:18] LABS: ALBUMIN 3.4 g/dL (3.4-5.0); TOTAL BILIRUBIN 0.3 mg/dL (<0.1-1.0); TOTAL PROTEIN 7.2 g/dL (6.4-8.2)
[2020-07-28 09:36] LABS: URINE BILIRUBIN NEGATIVE (Negative); URINE BLOOD NEGATIVE (Negative); URINE CLARITY CLEAR; URINE COLOR YELLOW; URINE GLUCOSE-RANDOM NEGATIVE (Negative); URINE KETONES NEGATIVE (Negative); URINE LEUKOCYTES-REFLEX NEGATIVE (Negative); URINE NITRITE-REFLEX NEGATIVE (Negative); URINE PROTEIN NEGATIVE (Negative); URINE SPECIFIC GRAVITY <= 1.005 (1.005-1.030); URINE UROBILINOGEN 0.2 E.U./dl (0.2-1.0)
--- NOTE | 2020-07-28 09:58 | NUR ---
VI NOTIFIED UPON PT RETURN FROM CT. PT CONNECTED TO BP AND PULSE OX MONITOR HE WAS PRIOR TO CT
[2020-07-28 12:03] VITALS: BP 126/90
[2020-07-28 15:48] VITALS: BP 129/93
--- NOTE | 2020-07-28 16:37 | EKG ---
[place] [address] ELECTROCARDIOGRAM REPORT Name: ELBA FOUNTAIN Room: [address] ADM IN .R.#: [id number] Admission: 07/28/20 Attend Phys: Edmond Lainez, Discharge: Date of : 67 Date of Service: 07/28/20 0921 Report #: [id number] THIS REPORT FOR: //name// [facility] ED Test Date: 2020-07-28 Test Time: 09:21:50 Pat Name: ELBA FOUNTAIN Department: Room: [facility] Gender: M Shop Service Technician: MR : 1965 Requested By: Vivek Paz Order Number: [id number] MD: Virgilio Cole Measurements Intervals [place] Rate: 90 P: 67 [place]: 179 QRS: 67 QRSD: 83 T: 51 QT: 336 QTc: 411 Interpretive Statements Sinus rhythm septal q waves Borderline low voltage, extremity leads Baseline wander in lead(s) V3,V4 Compared to ECG 07/19/2018 14:36:27 No significant changes Electronically Signed On 07-28-2020 16:37:08 COAT REPAIR INSPECTOR by Virgilio Cole [email or web address] <ELECTRONICALLY SIGNED> By: Virgilio Cole MD, FACC 07/28/20 1637 0 0 Virgilio Cole MD, FACC /EPI
--- NOTE | 2020-07-28 19:18 | NUR ---
RECEIVED REPORT FROM ER. PT ARRIVED TO TELE FLOOR AROUND 1210. ADMISSION ASSESSMENT, EDUCATION AND HISTORY COMPLETED CHARTED. MEDS PER EMAR. PT ORIENTED TO ROOM BED AND CALL LIGHT. VISITED THIS AFTERNOON. PT REPORTING PAIN TO ABDOMEN THAT HAS BEEN MANAGED WITH IV PAIN MEDICATION. PT ANXIOUS THIS AFTERNOON, STATED THAT HE IS ON PROBATION FOR A PAST DUI AND WAS WORRIED ABOUT HIS SERUM ALCOHOL LEVEL. REASSURANCE GIVEN. PT REQUESTED ATIVAN FOR ANXIETY AND RECEIVED IT. PT TOLERATING CLEAR LIQUIDS. IV FLUIDS INFUSING. UP ADLIB TO BATHROOM. PT CURRENTLY RESTING IN BED WATCHING TV. CALL LIGHT IS WITHIN REACH. HOURLY ROUNDING PERFORMED. LOW FALL RISK PRECAUTIONS IN PLACE.
[2020-07-28 20:00] VITALS: BP 142/100
[2020-07-29] VITALS: BP 133/91
[2020-07-29 04:00] VITALS: BP 144/94
[2020-07-29 04:12] LABS: HEMATOCRIT 35.4 % (42.0-52.0); HEMOGLOBIN 11.9 gm/dL (14.0-18.0); MCH 29.1 pg (26.0-34.0); MCHC 33.7 g/dL (28.0-37.0); MCV 86.5 fL (80.0-100.0); RBC 4.09 mil/uL (4.50-6.00); RDW-CV 14.1 % (10.5-14.5); WBC 8.7 thou/uL (4.0-11.0)
[2020-07-29 04:33] LABS: ALBUMIN 2.7 g/dL (3.4-5.0); CALCIUM 7.8 mg/dL (8.5-10.1); CREATININE 0.9 mg/dL (0.6-1.3); MAGNESIUM 1.5 mg/dL (1.8-2.4); POTASSIUM 3.6 mmol/L (3.5-5.1); TOTAL BILIRUBIN 0.6 mg/dL (<0.1-1.0); TOTAL PROTEIN 5.6 g/dL (6.4-8.2)
--- NOTE | 2020-07-29 07:52 | NUR ---
ASSUMED PT CARE AT APPROX 1930. PT IS AWAKE AND ORIENTED X4. PT IS NOT IN DISTRESS, NO DESATURATIONS ON ROOM AIR. PT IS TRACING SR/ST ON THE HOT ROLL LAMINATOR. PAIN MEDICINE GIVEN FOR ABDOMINAL PAIN WITH PARTIAL RELIEF. NO OTHER ACUTE CHANGEGS THIS SHIFT. CALL LIGHT WITHIN REACH. HOURLY ROUNDING DONE FOR PT SAFETY.
[2020-07-29 08:02] VITALS: BP 146/104
[2020-07-29] MEDS ORDERED: CIPRO500 M1 PO (08:42)
[2020-07-29] MEDS ORDERED: FLAGYL500 M1 PO (08:42)
[2020-07-29] MEDS ORDERED: TRAMADOL 50 MG50 MG PO (08:43)
--- NOTE | 2020-07-29 10:39 | NUR ---
ASSUMED CARE OF PT THIS AM AROUND 0715- MANAGER FRONT OFFICE IN PLACE ORDERED, TRACING SR- UPON ASSESSMENT PT NOTED TO BE RESTING IN BED- PT A&O X4- CONT OF B/B- UP AD-LADARIUS IN ROOM, STEADY GAIT NOTED- LCTA, RESP EVEN AND UN-LABORED- VSS, O2 SAT 99% ON RA- ABD SOFT/ROUND/TENDER, BS X4 QUADS- LAST BM REPORTED THIS AM- IV NOTED TO RIGHT AC INTACT AND SL; IV ABT GIVEN THIS AM PRESCIBED- GOOD PO INTAKE NOTED THIS AM WITH BREAKFAST- PT REPORTS PAIN 8/10 TO LOWER ABD, PRN TRMADOL AND TYLENOL GIVEN THIS AM AT 0917- CALL LIGHT AND PERSONAL BELONGINGS WITH IN REACH- ALL NEEDS MET AT THIS TIME- WCTM
[2020-07-29 11:00] VITALS: BP 122/89
[2020-07-29 11:29] VITALS: BP 146/104
[2020-07-29 12:58] VITALS: BP 146/104
== END 2020-07-29 12:56 | disposition home or self-care (01) ==
LOC: M.ERS 08:39 → M.2W 10:35 → M.TBA-ER 10:35 → M.2W 12:39
PROVIDERS: Emergency Medicine Emergency Medical Services; ADMIT Internal Medicine; ATTEND Internal Medicine
DX: K57.92 Diverticulitis of intestine, part unspecified, without perforation or abscess without bleeding (principal); E87.2 Acidosis; R10.9 Unspecified abdominal pain; G43.909 Migraine, unspecified, not intractable, without status migrainosus; I10 Essential (primary) hypertension; Z79.899 Other long term (current) drug therapy; Z20.828 Contact with and (suspected) exposure to other viral communicable diseases

== ENCOUNTER 2020-09-15 14:13 | Emergency (ER) | payer OTHER ==
[~2020-09-15] VITALS: Ht 175.3 cm; Wt 79.4 kg
[~2020-09-15 14:13] MED LIST changes: +CIPRO500 M1 PO; +FLAGYL500 M1 PO
[2020-09-15] MEDS ORDERED: NORCO5 PO (16:55)
[2020-09-15] MEDS ORDERED: ZANAFLEX4 MG PO (17:02)
[2020-09-15 17:03] VITALS: BP 137/97
== END 2020-09-15 17:03 | disposition home or self-care (01) ==
LOC: M.ERS 14:13
DX: S20.212A Contusion of left front wall of thorax, initial encounter (principal); M54.6 Pain in thoracic spine; W00.0XXA Fall on same level due to ice and snow, initial encounter; Y93.89 Activity, other specified; Y92.89 Other specified places as the place of occurrence of the external cause; Y99.8 Other external cause status

== ENCOUNTER 2021-02-02 20:38 | Emergency (ER) | payer OTHER ==
[~2021-02-02] VITALS: Ht 175.3 cm; Wt 77.1 kg
[~2021-02-02 20:38] MED LIST changes: +NORCO5 PO; +ZANAFLEX4 MG PO
[2021-02-02] MEDS ORDERED: NORCO5 PO (22:32)
[2021-02-02 22:42] VITALS: BP 112/70
== END 2021-02-02 22:43 | disposition home or self-care (01) ==
LOC: M.ERS 20:38
DX: M54.6 Pain in thoracic spine (principal); F10.20 Alcohol dependence, uncomplicated; X50.0XXA Overexertion from strenuous movement or load, initial encounter; Y93.89 Activity, other specified; Y92.89 Other specified places as the place of occurrence of the external cause; Y99.8 Other external cause status

== ENCOUNTER 2021-03-11 07:00 | Emergency (ER) | payer OTHER ==
[~2021-03-11] VITALS: Ht 175.3 cm; Wt 77.1 kg
[2021-03-11] MEDS ORDERED: MEDROLDOSEPACK PO (08:15)
[2021-03-11] MEDS ORDERED: IBUPROFEN 800800 MG PO (08:15)
[2021-03-11] MEDS ORDERED: FLEXERIL PO (08:15)
[2021-03-11 08:24] VITALS: BP 126/89
== END 2021-03-11 08:26 | disposition home or self-care (01) ==
LOC: M.ERS 07:00
DX: G89.29 Other chronic pain (principal); M54.6 Pain in thoracic spine